=== PATIENT | male | born 1990 | race Caucasian/White ===

== ENCOUNTER 2024-11-06 18:29 | Emergency (ER) | payer BC, SELFPAY ==
[2024-11-06] MEDS ORDERED: ASPIRIN 81 MG CHEWABLE TABLET ONE (19:32)
[2024-11-06 19:58] LABS: Absolute Lymphocytes (CBC) 1.3 K/uL (0.7-4.9); Hematocrit 44.8 % (39.6-49.0); Hemoglobin 15.3 g/dL (13.6-17.9); MCH 29.3 pg (27.0-35.0); MCHC 34.2 g/dL (32.0-36.0); MCV 85.6 fL (80-100); MPV 7.5 fL (7.6-11.3); Nucleated RBC Absolute Count 0.0 (0-0); Nucleated Red Blood Cells % 0.1 % (0-0); RBC Red Blood Cell Count 5.23 M/uL (4.33-5.43); White Blood Count 5.60 thou/uL (4.3-10.9)
[2024-11-06 20:02] LABS: PT Prothrombin Time 12.5 SECONDS (10-13.0); Protime INR 1.11
[2024-11-06 20:04] LABS: D-Dimer < 0.215 FEUug/mL (0-0.500)
--- NOTE | 2024-11-06 20:16 | RAD REPORT ---
EXAMINATION: ONE VIEW CHEST XR CLINICAL INDICATION: CHEST PAIN TECHNIQUE: Frontal chest projection is submitted. Examination is limited by patient positioning and t echnique. COMPARISON: No prior exam. FINDINGS: The lungs are well inflated and clear. The heart is upper limit of normal in size. No displaced fract ures identified. IMPRESSION: No acute intrathoracic abnormalities.
[2024-11-06 20:28] LABS: ALT/SGPT 39 U/L (16-61); AST/SGOT 21 U/L (15-37); Albumin 3.9 g/dL (3.4-5.0); Albumin/Globulin Ratio 1.2 (1.1-1.8); Alkaline Phosphatase 58 U/L (45-117); Anion Gap 7.8 mEq/L (5.0-15.0); BUN Blood Urea Nitrogen 11 mg/dL (7-18); Globulin 3.3 g/dL (2.3-3.5); Glucose Level 91 mg/dL (74-106); Magnesium 2.3 mg/dL (1.6-2.4); NT PRO-BNP 32 pg/mL (<125); Potassium 3.8 mEq/L (3.5-5.1); Thyroid Stimulating Hormone 1.580 uIU/mL (0.358-3.740); Troponin High Sensitivity 3.0 pg/mL (<58.9)
[2024-11-06 20:30] LABS: Bilirubin Indirect, Calculated 0.3 mg/dL (0.2-0.8)
--- NOTE | 2024-11-06 22:24 | RAD REPORT ---
EXAMINATION: CTA CHEST CLINICAL INDICATION: back pain;Chest pain TECHNIQUE: This examination was performed according to an angiographic protocol with 3D post-processi ng. This involves 3D reconstructions, MIPs, volume rendered images and/or shaded surface rendering. One or more of the following dose reduction techniques were used: Automated exposure control, adjustm ent of the mA and/or kV according to patient size, and/or iterative reconstruction. Unless otherwise specified, incidental findings do not require dedicated imaging follow-up. COMPARISON: No prior exam. FINDINGS: THORACIC AORTA: Normal caliber and configuration. PULMONARY ARTERIES: Normal caliber. No evidence of pulmonary emboli to the subsegmental level. LUNGS: No evidence of airspace or interstitial process. No nodules. PLEURA: No pleural effusion. No pneumothorax. MEDIASTINUM AND LYMPH NODES: No mediastinal mass or fluid collection. Normal size mediastinal, hilar, and axillary lymph nodes. OSSEOUS STRUCTURES AND CHEST WALL: Intact. UPPER ABDOMEN: No significant abnormalities. IMPRESSION: Unremarkable CTA of the chest.
--- NOTE | 2024-11-06 22:37 | EDPHYS ---
Physician Documentation [facility] Name: Dalton Ozuna Age: 34 yrs Sex: Male : 1990 Arrival Date: 11/06/2024 Time: 18:29 Bed 4 Private MD: ED Physician Aroldo Salazar HPI: 11/06 18:55 This 34 yrs old Male presents to ER via Ambulatory with complaints of Chest Pain, cp Shortness Of Breath, back and neck tightness. 18:55 The patient or guardian reports chest pain that is located primarily in the anterior cp chest wall, left. 18:55 Associated signs and symptoms: Pertinent positives: left side upper back and neck pain. cp The chest pain is described as sharp, intermittent. Severity of pain: in the emergency department the pain has improved markedly. 18:55 Duration: The patient or guardian reports multiple episodes, that are intermittent. 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 - Infectious Disease History:: Denies. - Social history:: Smoking status: Patient reports the use of cigarette tobacco products, cigars. ROS: 18:57 Cardiovascular: Positive for chest pain, of the left side and mid chest, cp 18:57 Eyes: Negative for injury, pain, redness, and discharge, cp 18:57 Constitutional: Negative for body aches, chills, fever, poor PO intake, 18:57 ENT: Negative for drainage from ear(s), ear pain, sore throat, difficulty swallowing, difficulty handling secretions, 18:57 Neck: Negative for pain with movement, pain at rest, stiffness, 18:57 Respiratory: Negative for cough, shortness of breath, wheezing, 18:57 Abdomen/GI: Negative for abdominal pain, nausea, vomiting, and diarrhea, 18:57 Back: Positive for pain at rest, pain with movement, of the medial to left mid scapula, Negative for injury or acute deformity, decreased range of motion, 18:57 Neuro: Negative for altered mental status, dizziness, headache, numbness, weakness, cp 18:57 All other systems are negative, Exam: 19:00 Constitutional: The patient appears in no acute distress, alert, awake, cp non-diaphoretic, non-toxic, well developed, well nourished, 19:00 Head/Face: Normocephalic, atraumatic. cp 19:00 Eyes: Periorbital structures: appear normal, Conjunctiva: normal, no exudate, no injection, Sclera: no appreciated abnormality, Lids and lashes: appear normal, bilaterally, 19:00 ENT: External ear(s): are unremarkable, Nose: is normal, Mouth: Lips: moist, Oral mucosa: moist, Posterior pharynx: Airway: no evidence of obstruction, patent, 19:00 Chest/axilla: Inspection: normal, 19:00 Cardiovascular: Rate: normal, Rhythm: regular, Edema: is not appreciated, JVD: is not appreciated, 19:00 Respiratory: the patient does not display signs of respiratory distress, Respirations: normal, no use of accessory muscles, no retractions, labored breathing, is not present, Breath sounds: are clear throughout, no decreased breath sounds, no stridor, no wheezing, 19:00 Abdomen/GI: Inspection: abdomen appears normal, Palpation: abdomen is soft and non-tender, in all quadrants, 19:00 Back: no tenderness to palpation, 19:00 Neuro: Orientation: to person, place \T\ time. Mentation: is normal, Motor: moves all fours, strength is normal, Sensation: is normal, 20:05 ECG was reviewed by the Attending Physician. cp Vital Signs: 18:49 BP 139 / 94; Pulse 81; Resp 16 S; Temp 98.3(O); Pulse Ox 99% on R/A; Weight 83.91 kg aa5 (R); Height 5 ft. 6 in. (R); 20:11 BP 115 / 81; Pulse 59; Resp 17; Temp 98.3; Pulse Ox 98% ; Pain 4/10; vc1 20:46 BP 114 / 80; Pulse 56; Resp 13; Pulse Ox 97% ; vc1 21:30 BP 115 / 69; Pulse 59; Resp 16; Pulse Ox 98% ; vc1 22:23 BP 126 / 81; Pulse 62; Resp 14; Pulse Ox 98% ; vc1 22:51 BP 124 / 85; Pulse 69; Resp 14; Pulse Ox 98% ; vc1 18:49 Body Mass Index 29.86 (83.91 kg, 167.64 cm) aa5 20:11 Pain Scale: Adult vc1 MDM: 22:37 Medical Screening Exam initiated cp 22:37 Data reviewed: vital signs, nurses notes, lab test result(s), EKG, radiologic studies, cp CT scan, plain films, and as a result, I will discharge patient. 22:37 Differential diagnosis: acute myocardial infarction, chest wall pain, pancreatitis, cp pericarditis, pleurisy, pneumonia, pneumothorax, pulmonary embolus, thoracic aortic disection. I considered the following discharge prescriptions or medication management in the emergency department Medications were administered in the Emergency Department. See MAR. Independent interpretation of the following test(s) in the Emergency Department EKG: See my EKG interpretation above. Care significantly affected by the following chronic conditions: Thyroid Disease. Special discussion: Based on the patient's history, exam, and Dx evaluation, there is no indication for emergent intervention or inpatient Tx. It is understood by the patient/guardian that if the Sx's persist or worsen they need to return immediately for re-evaluation. 08 18:55 Order name: Basic Metabolic Panel; Complete Time: 20:55 cp 08/14 20:56 Interpretation: Normal except: CL 108; GFR 75. cp 11/06 18:55 Order name: CBC with Diff; Complete Time: 20:05 cp 08/14 20:05 Interpretation: Normal except: MPV 7.5. cp /14 18:55 Order name: D-Dimer; Complete Time: 20:05 cp 14 18:55 Order name: LFT's; Complete Time: 20:55 cp 14 18:55 Order name: Magnesium; Complete Time: 20:55 cp 08/14 18:55 Order name: NT PRO-BNP; Complete Time: 20:55 cp 08/14 18:55 Order name: PT-INR; Complete Time: 20:05 cp 08/14 18:55 Order name: Troponin HS; Complete Time: 20:55 cp 08/14 18:55 Order name: TSH; Complete Time: 20:55 cp 08/14 18:55 Order name: T3 Free; Complete Time: 20:55 cp 08/14 20:59 Order name: Troponin High Sensitivity; Complete Time: 22:32 cp / 18:55 Order name: XRAY Chest (1 view); Complete Time: 20:40 cp 11/06 20:59 Order name: CT Chest Angio; Complete Time: 22:32 cp 11/06 18:55 Order name: Cardiac monitoring; Complete Time: 19:47 11/06 18:55 Order name: EKG - Nurse/Tech; Complete Time: 19:02 cp 11/06 18:55 Order name: IV Saline Lock; Complete Time: 19:47 11/06 18:55 Order name: Labs collected and sent; Complete Time: 19:47 cp 11/06 18:55 Order name: O2 Per Protocol; Complete Time: 19:47 cp 11/06 18:55 Order name: O2 Sat Monitoring; Complete Time: 19:49 cp EC:05 Rate is 70 beats/min. Rhythm is regular. CA interval is normal. QRS interval is normal. cp QT interval is normal. T waves are Inverted in lead aVR. Interpreted by me. Reviewed by me. Administered Medications: 19:53 Drug: Aspirin PO Chewable Tablet 324 mg PO once; 81 mg tablets x 4 Route: PO; vc1 20:15 Follow up: Response: No adverse reaction; Marked relief of symptoms vc1 Disposition: 19:04 I was immediately available on-site in the Emergency Department for consultation in the ms3 care of the patient. Disposition Summary: 11/06/24 22:37 Discharge Ordered Notes: Location: Home cp Condition: Stable cp Diagnosis - Chest pain, unspecified cp Followup: cp - With: Dave Serna MD - When: 5 - 6 days - Reason: Recheck today's complaints Followup: cp - With: Dave Serna MD - When: 2 - 3 days - Reason: Recheck today's complaints Discharge Instructions: - Discharge Summary Sheet cp - Nonspecific Chest Pain, Adult cp - Aspirin and Your Heart cp - Managing Stress, Adult cp Forms: - Medication Reconciliation Form cp - Antibiotic Education cp - Prescription Opioid Use cp - Patient Portal Instructions cp - Leadership Thank You Letter cp Signatures: Dispatcher [employer] Maria Isabel Freed, RN RN aa5 Ángel Rivas PA PA cp Aroldo Salazar DO DO ms3 Leia Sood RN RN vc1 Corrections: (The following items were deleted from the chart) 18:56 18:56 Chest Single View+RAD.RAD.BRZ ordered. EDMS EDMS 20:59 20:59 Chest Angio+CT.RAD.BRZ ordered. EDMS EDMS 21:00 20:59 Troponin High Sensitivity+C.LAB.BRZ ordered. EDMS EDMS
--- NOTE | 2024-11-06 22:37 | ER ---
Nurse's Notes [facility] Name: Dalton Ozuna Age: 34 yrs Sex: Male : 1990 Arrival Date: 11/06/2024 Time: 18:29 Bed 4 Private MD: Diagnosis: Chest pain, unspecified Presentation: 11/06 18:49 Chief complaint: Patient states: chest pain and SOB that began 2 days ago. Pt also aa5 reports pain to posterior neck today. Onset of symptoms was October 2024. 18:49 Acuity: MAHIN 3 aa5 18:49 Method Of Arrival: Ambulatory aa5 18:49 Coronavirus screen: At this time, the client does not indicate any symptoms associated aa5 with coronavirus-19. Ebola Screen: Patient denies travel to an Ebola-affected area in the 21 days before illness onset. Initial Sepsis Screen: Does the patient meet any 2 criteria? No. Patient's initial sepsis screen is negative. Does the patient have a suspected source of infection? No. Patient's initial sepsis screen is negative. Risk Assessment: Do you want to hurt yourself or someone else? Patient reports no desire to harm self or others. 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 - Infectious Disease History:: Denies. - Social history:: Smoking status: Patient reports the use of cigarette tobacco products, cigars. Screenin:54 [facility] ED Fall Risk Assessment (Adult) History of falling in the last 3 months, vc1 including since admission No falls in past 3 months (0 pts) Confusion or Disorientation No (0 pts) Intoxicated or Sedated No (0 pts) Impaired Gait No (0 pts) Mobility Assist Device Used No (0 pt) Altered Elimination No (0 pt) Score/Fall Risk Level 0 - 2 = Low Risk Oriented to surroundings, Maintained a safe environment, Educated pt \\T\\ family on fall prevention, incl call for assistance when getting out of bed, Assessed \\T\\ reinforced patient's understanding of fall precautions, Used ambulatory aids as needed (educated on \\T\\ assisted with). Abuse screen: Denies threats or abuse. Nutritional screening: No deficits noted. Tuberculosis screening: No symptoms or risk factors identified. Assessment: 19:55 General: Appears in no apparent distress. uncomfortable, slender, well groomed, well vc1 developed, well nourished, Behavior is calm, cooperative, appropriate for age. Pain: Complains of pain in anterior aspect of left upper chest Pain does not radiate. Quality of pain is described as sharp, pinching, Pain began 1 day ago. Alleviated by nothing. Aggravated by "worse when I think about it". Neuro: Level of Consciousness is awake, alert, obeys commands, Oriented to person, place, time, situation, Appropriate for age. Cardiovascular: Heart tones S1 S2 present Capillary refill < 3 seconds Patient's skin is warm and dry. Cardiovascular: Reports chest pain, Denies palpitations, shortness of breath. Respiratory: Airway is patent Respiratory effort is even, unlabored, Respiratory pattern is regular, symmetrical, Breath sounds are clear bilaterally. GI: No deficits noted. No signs and/or symptoms were reported involving the gastrointestinal system. : No deficits noted. No signs and/or symptoms were reported regarding the genitourinary system. EENT: No deficits noted. No signs and/or symptoms were reported regarding the EENT system. Derm: Skin is intact, is healthy with good turgor, Skin is dry, Skin is normal, Skin temperature is warm. Musculoskeletal: Circulation, motion, and sensation intact. Range of motion: intact in all extremities. 20:50 Reassessment: Patient appears in no apparent distress at this time. Patient and/or vc1 family updated on plan of care and expected duration. Pain level reassessed. Patient is alert, oriented x 3, equal unlabored respirations, skin warm/dry/pink. Pt states "not really having chest pain more of a discomfort.". 22:24 Reassessment: Patient appears in no apparent distress at this time. No changes from vc1 previously documented assessment. Patient and/or family updated on plan of care and expected duration. Pain level reassessed. Patient is alert, oriented x 3, equal unlabored respirations, skin warm/dry/pink. 22:52 Reassessment: Patient appears in no apparent distress at this time. No changes from vc1 previously documented assessment. Patient and/or family updated on plan of care and expected duration. Pain level reassessed. Patient is alert, oriented x 3, equal unlabored respirations, skin warm/dry/pink. Vital Signs: 18:49 BP 139 / 94; Pulse 81; Resp 16 S; Temp 98.3(O); Pulse Ox 99% on R/A; Weight 83.91 kg aa5 (R); Height 5 ft. 6 in. (R); 20:11 BP 115 / 81; Pulse 59; Resp 17; Temp 98.3; Pulse Ox 98% ; Pain 4/10; vc1 20:46 BP 114 / 80; Pulse 56; Resp 13; Pulse Ox 97% ; vc1 21:30 BP 115 / 69; Pulse 59; Resp 16; Pulse Ox 98% ; vc1 22:23 BP 126 / 81; Pulse 62; Resp 14; Pulse Ox 98% ; vc1 22:51 BP 124 / 85; Pulse 69; Resp 14; Pulse Ox 98% ; vc1 18:49 Body Mass Index 29.86 (83.91 kg, 167.64 cm) aa5 20:11 Pain Scale: Adult vc1 ED Course: 18:33 Patient arrived in ED. al6 18:40 Ángel Rivas PA is PHCP. cp 18:40 Aroldo Salazar DO is Attending Physician. cp 18:49 Arm band placed on. aa5 18:50 Triage completed. aa5 19:02 EKG completed in triage. Results shown to MD. aa5 19:19 Adriel Brock, RN is Primary Nurse. bm8 19:40 XRAY Chest (1 view) In Process Unspecified. EDMS 19:43 Patient has correct armband on for positive identification. Bed in low position. Call vc1 light in reach. nurse monitoring on. Pulse ox on. NIBP on. 19:43 Provided Education on: Plan of care. vc1 19:49 T3 Free Sent. vc1 19:49 TSH Sent. vc1 19:49 Basic Metabolic Panel Sent. vc1 19:49 CBC with Diff Sent. vc1 19:49 Inserted saline lock: 20 gauge in right antecubital area, using aseptic technique. vc1 Blood collected. Flushed with 10 mL NS. Patient maintains SpO2 saturation greater than 95% on room air. 21:24 Troponin High Sensitivity Sent. vc1 22:00 CT Chest Angio In Process Unspecified. EDMS 22:36 Dave Serna MD is Referral Physician. cp 22:36 Referral Physician role handed off by Dave Serna MD cp 22:36 Dave Serna MD is Referral Physician. cp 22:52 No provider procedures requiring assistance completed. IV discontinued, intact, vc1 bleeding controlled, No redness/swelling at site. Pressure dressing applied. Administered Medications: 19:53 Drug: Aspirin PO Chewable Tablet 324 mg PO once; 81 mg tablets x 4 Route: PO; vc1 20:15 Follow up: Response: No adverse reaction; Marked relief of symptoms vc1 Medication: 19:55 VIS not applicable for this client. vc1 Outcome: 22:37 Discharge ordered by MD. cp 22:52 Discharged to home ambulatory, with significant other, vc1 22:52 Condition: stable 22:52 Discharge instructions given to patient, Instructed on discharge instructions, follow up and referral plans. Demonstrated understanding of instructions, follow-up care, 22:53 Patient left the ED. vc1 Signatures: Dispatcher [employer] EDMS Maria Isabel Kowalski RN RN aa5 Ángel Rivas, CHARLEY PA cp Leia Sood RN RN vc1 Adriel Brock RN RN bm8 Diana Taylor al6 Corrections: (The following items were deleted from the chart) 18:54 18:49 BP 139 / 94; Pulse 81bpm; Resp 16bpm; Spontaneous; Pulse Ox 99% RA; Temp 98.3F aa5 Oral; aa5
[2024-11-07 01:46] VITALS: TEMP 98.7
[2024-11-07 01:52] VITALS: BP 181/87; O2SAT 94
== END 2024-11-06 22:53 | disposition home or self-care (01) ==
LOC: ER 18:29
DX: R07.9 Chest pain, unspecified (principal)
CPT/HCPCS: 36415; 71045; 71275; 80048; 80076; 83735; 83880; 84443; 84481; 84484; 85025; 85379; 85610; 93005; 99285; Q9967